=== PATIENT | male | born 1965 | race Caucasian/White ===

== ENCOUNTER 2016-04-27 13:00 | Emergency (ER) | payer OTHER ==
[~2016-04-27] VITALS: Ht 190.5 cm; Wt 90.2 kg
[2016-04-27 14:23] VITALS: BP 121/82
== END 2016-04-27 14:24 | disposition home or self-care (01) ==
LOC: EME 13:00
DX: S20.211A Contusion of right front wall of thorax, initial encounter (principal); F17.200 Nicotine dependence, unspecified, uncomplicated; W22.8XXA Striking against or struck by other objects, initial encounter
CPT/HCPCS: 71101; 99281; 99283